=== PATIENT | female | born 1965 | race Caucasian/White ===

== ENCOUNTER → 2019-06-13 13:03 | Outpatient (CLI) | payer OTHER | END | disposition home or self-care (01) | LOC: LAB 13:03 | DX: D64.89 Other specified anemias (principal); N39.0 Urinary tract infection, site not specified; E78.00 Pure hypercholesterolemia, unspecified; Z11.4 Encounter for screening for human immunodeficiency virus [HIV]; A63.0 Anogenital (venereal) warts; N76.6 Ulceration of vulva; B17.10 Acute hepatitis C without hepatic coma ==

== ENCOUNTER 2019-06-20 10:25 | Outpatient (CLI) | payer OTHER | END 2019-06-20 10:28 | disposition home or self-care (01) | LOC: NUCLEAR 10:25 | DX: M81.0 Age-related osteoporosis without current pathological fracture (principal) ==

== ENCOUNTER 2019-06-20 13:30 | Outpatient (CLI) | payer OTHER | END 2019-06-20 14:43 | disposition home or self-care (01) | LOC: MAMO-SONO 13:30 | DX: Z12.31 Encounter for screening mammogram for malignant neoplasm of breast (principal); Z87.898 Personal history of other specified conditions; N64.4 Mastodynia; D25.0 Submucous leiomyoma of uterus; M81.0 Age-related osteoporosis without current pathological fracture ==

== ENCOUNTER → 2021-05-30 12:33 | Outpatient (CLI) | payer OTHER | END | disposition home or self-care (01) | LOC: LAB 12:33 | PROVIDERS: ATTEND Obstetrics & Gynecology | DX: C56.1 Malignant neoplasm of right ovary (principal); N39.0 Urinary tract infection, site not specified; Z13.29 Encounter for screening for other suspected endocrine disorder; D64.2 Secondary sideroblastic anemia due to drugs and toxins; E55.9 Vitamin D deficiency, unspecified; E78.2 Mixed hyperlipidemia; B20 Human immunodeficiency virus [HIV] disease ==

== ENCOUNTER 2021-06-05 14:16 | Outpatient (CLI) | payer OTHER | END 2021-06-05 14:20 | disposition home or self-care (01) | LOC: MAMO-SONO 14:16 | PROVIDERS: ATTEND Obstetrics & Gynecology | DX: N84.0 Polyp of corpus uteri (principal); N64.89 Other specified disorders of breast ==

== ENCOUNTER 2022-10-15 12:21 | Outpatient (CLI) | payer OTHER | END 2022-10-15 12:22 | disposition home or self-care (01) | LOC: MAMO-SONO 12:21 | PROVIDERS: ATTEND Obstetrics & Gynecology | DX: N64.4 Mastodynia (principal) ==

== ENCOUNTER 2025-05-01 15:49 | Outpatient (CLI) | payer OTHER | END 2025-05-01 15:54 | disposition home or self-care (01) | LOC: RAD 15:49 | PROVIDERS: ATTEND Obstetrics & Gynecology | DX: M16.0 Bilateral primary osteoarthritis of hip (principal) | CPT/HCPCS: 72197 ==

== ENCOUNTER 2025-06-02 14:34 | Outpatient (CLI) | payer OTHER | END 2025-06-02 14:36 | disposition home or self-care (01) | LOC: RAD 14:34 | DX: Z01.810 Encounter for preprocedural cardiovascular examination (principal) ==